=== PATIENT | female | born 1995 | race African-American/Black ===

== ENCOUNTER 2018-04-03 08:40 | Emergency (ER) | payer OTHER ==
[~2018-04-03] VITALS: Ht 167.6 cm; Wt 95.3 kg
[2018-04-03 08:51] VITALS: BP 156/82
--- NOTE | 2018-04-03 09:03 | PHYS DOC ---
Past Medical History Past Medical History: Anemia Past Surgical History: No Surgical History Alcohol Use: None Drug Use: None Adult General Chief Complaint Chief Complaint: MEDICAL CLEARANCE HPI HPI 22-year-old female presents to ER via EMS for complaints initially for sore throat. On initial exam patient reports she really doesn't have a sore throat she came to the ER as she is 15 weeks and feels lightheaded like she could pass out. Patient states she has not eaten this morning as during her she has had decreased appetite. Patient denies any abdominal pain, nausea or vomiting, chest pain or palpitations, urinary symptoms, or vaginal bleeding. Patient states she is 1 para 0 uncertain of last menstrual period. Patient is to 09/19/18 and had an ultrasound at a [facility] in [place] a couple weeks ago. Patient states she has a new WATER TREATMENT TECHNICIAN she is seen on 04/29/18 but did not call the clinic to discuss her symptoms. Patient reports she has history of anemia and takes daily iron. Patient denies vitamins. Patient reports regular bowel movement last night and states she has been urinating without symptoms. Patient reports she was seen at urgent care last week and got a phone call today stating she has BV. Patient denies they called in prescriptions stating she was told to follow-up with her WATER TREATMENT TECHNICIAN for further care. Review of Systems Review of Systems Constitutional: Denies fever or chills. Denies fatigue Eyes: Denies change in visual acuity, redness, or eye pain [] HENT: Denies nasal congestion. Reports she has mild sore throat denies throat swelling or difficulty swallowing Respiratory: Denies cough or shortness of breath [] Cardiovascular: Denies chest pain or palpitations GI: Denies abdominal pain, nausea, vomiting, bloody stools or diarrhea [] : Denies dysuria or hematuria. Denies vaginal bleeding Musculoskeletal: Denies back pain or joint pain [] Integument: Denies rash or skin lesions [] Neurologic: Denies headache, focal weakness or sensory changes. Reports feeling lightheaded Endocrine: Denies polyuria or polydipsia [] All other systems were reviewed and found to be within normal limits, except as documented in this note. Allergies Allergies Allergies Coded Allergies Type Severity Reaction Last Updated Verified No Known Drug Allergies 04/03/18 No Physical Exam Physical Exam Constitutional: Well developed, well nourished, no acute distress, non-toxic appearance. [] HENT: Normocephalic, atraumatic, bilateral ears normal, oropharynx moist-no pharyngeal or tonsillar swelling/erythema, no oral exudates, nose normal. [] Eyes: Pupils equal, conjunctiva normal, no discharge. [] Neck: Normal range of motion, no tenderness, supple Cardiovascular: Heart rate regular rhythm, no murmur [] Lungs & Thorax: Bilateral breath sounds clear to auscultation. Respirations equal and nonlabored Abdomen: Bowel sounds normal, soft-no distention or rigidity, no tenderness Skin: Warm, dry, no erythema, no rash. [] Back: No tenderness, no CVA tenderness. [] Extremities: No tenderness, no cyanosis, no clubbing, ROM intact, no edema. [] Neurologic: Alert and oriented X 3, normal motor function, normal sensory function, no focal deficits noted. [] Psychologic: Affect normal, judgement normal, mood normal. [] Current Patient Data Vital Signs Vital Signs Date Time Temp Pulse Resp B/P (MAP) Pulse Ox O2 Delivery O2 Flow Rate FiO2 04/03/18 08:51 98.4 107 18 156/82 (106) 98 Room Air 98.4 Lab Values Laboratory Tests Test 04/03/18 09:35 04/03/18 09:42 04/03/18 09:45 White Blood Count 8.6 x10^3/uL (4.0-11.0) Red Blood Count 5.35 x10^6/uL (3.50-5.40) Hemoglobin 13.9 g/dL (12.0-15.5) Hematocrit 41.2 % (36.0-47.0) Mean Corpuscular Volume 77 fL (79-100) L Mean Corpuscular Hemoglobin 26 pg (25-35) Mean Corpuscular Hemoglobin Concent 34 g/dL (31-37) Red Cell Distribution Width 25.8 % (11.5-14.5) H Platelet Count 445 x10^3/uL (140-400) H Neutrophils (%) (Auto) 69 % (31-73) Lymphocytes (%) (Auto) 20 % (24-48) L Monocytes (%) (Auto) 9 % (0-9) Eosinophils (%) (Auto) 2 % (0-3) Basophils (%) (Auto) 0 % (0-3) Neutrophils # (Auto) 5.9 x10^3uL (1.8-7.7) Lymphocytes # (Auto) 1.7 x10^3/uL (1.0-4.8) Monocytes # (Auto) 0.8 x10^3/uL (0.0-1.1) Eosinophils # (Auto) 0.1 x10^3/uL (0.0-0.7) Basophils # (Auto) 0.0 x10^3/uL (0.0-0.2) Platelet Estimate Increased (ADEQUATE) Polychromasia Slight Anisocytosis Mod Ovalocytes Occ RBC Morphology Bizarre Forms Occ Sodium Level 138 mmol/L (136-145) Potassium Level 3.2 mmol/L (3.5-5.1) L Chloride Level 102 mmol/L (98-107) Carbon Dioxide Level 25 mmol/L (21-32) Anion Gap 11 (6-14) Blood Urea Nitrogen 5 mg/dL (7-20) L Creatinine 0.7 mg/dL (0.6-1.0) Estimated GFR (Cockcroft-Gault) 126.6 Glucose Level 77 mg/dL (70-99) Calcium Level 9.7 mg/dL (8.5-10.1) Glucose (Fingerstick) 75 mg/dL (70-99) Urine Collection Type Unknown Urine Color Yellow Urine Clarity Clear Urine pH 6.5 Urine Specific [place] 1.015 Urine Protein Negative mg/dL (NEG-TRACE) Urine Glucose (UA) Negative mg/dL (NEG) Urine Ketones (Stick) Negative mg/dL (NEG) Urine Blood Negative (NEG) Urine Nitrite Negative (NEG) Urine Bilirubin Negative (NEG) Urine Urobilinogen Dipstick 0.2 mg/dL (0.2 mg/dL) Urine Leukocyte Esterase Small (NEG) Urine RBC 0 /HPF (0-2) Urine WBC Occ /HPF (0-4) Urine Squamous Epithelial Cells Mod /LPF Urine Bacteria Few /HPF (0-FEW) Urine Mucus Mod /LPF POC Urine HCG, Qualitative Hcg positive (Negative) Laboratory Tests 04/03/18 09:35 Laboratory Tests 04/03/18 09:35 EKG EKG [] Radiology/Procedures Radiology/Procedures [] Course & Med Decision Making Course & Med Decision Making Pertinent Labs and Imaging studies reviewed. (See chart for details) 1105: Bedside heart tone monitor was unavailable in the ER so bedside ultrasound was used- movement and heart rhythm visualized unable to auscultate heart tones. Patient continues to deny any abdominal pain and is in no visible distress at this time. Patient was evaluated in the ER for complaints of feeling lightheaded and mild sore throat. Patient's exam was unremarkable. Discussed patient starting daily vitamins. Potassium was 3.2 on labs. Patient does take daily iron due to previous history of anemia. H& H stable at 13.9/41.2 and UA was unremarkable. Patient during initial exam stated she had decreased appetite in the past few days so in-depth conversation had with patient regarding need for well-balanced meal during . Patient was given jennifer crackers and fluids and she reports her symptoms had subsided. Patient has W[facility] TREATMENT TECHNICIAN appointment scheduled 04/29/18 she was advised she needed to keep this appointment for reevaluation and further care. Patient encouraged to increase fluid intake. Education provided on signs and symptoms to return to ER for. Discharge instructions were discussed. Patient had reported she was seen at urgent care and had been called reporting she had BV patient is to follow up with her WATER TREATMENT TECHNICIAN as she denies any vaginal discharge, odor, or vaginal bleeding so will hold on tx as she is not having sxs currently. Pt's case and plan of care was discussed with Dr. López. Derek Disclaimer Derek Disclaimer This electronic medical record was generated, in whole or in part, using a voice recognition dictation system. Departure Departure Impression: Primary Impression: Light-headed feeling Additional Impression: Sore throat (viral) Disposition: 01 HOME, SELF-CARE Condition: STABLE Referrals: NO PCP (PCP) Patient Instructions: ABCs of , Sore Throat Additional Instructions: You should eat well-balanced meals daily and drink plenty of water. Carry snacks with you daily. Your potassium was 3.2 you should start vitamins daily. Keep your scheduled appointment on 04/29/18 with your [facility] TREATMENT TECHNICIAN doctor. Your hemoglobin and hematocrit was 13.9/41.2- which is in the normal range. You may have viral symptoms causing your sore throat- tylenol as directed on container as needed for pain. Avoid other medications until you discuss with your WATER TREATMENT TECHNICIAN to make sure they are safe with . Problem Qualifiers BERLIN GARZA APRN Apr 03, 2018 09:03
[2018-04-03 09:51] LABS: BASO % 0 % (0-3); EOS # 0.1 x10^3/uL (0.0-0.7); EOS % 2 % (0-3); HEMATOCRIT 41.2 % (36.0-47.0); HEMOGLOBIN 13.9 g/dL (12.0-15.5); LYMPH # 1.7 x10^3/uL (1.0-4.8); LYMPH % 20 % (24-48); MEAN CORPUSCULAR HEMOGLOBIN 26 pg (25-35); MEAN CORPUSCULAR HGB CONC 34 g/dL (31-37); MEAN CORPUSCULAR VOLUME 77 fL (79-100); MONO # 0.8 x10^3/uL (0.0-1.1); MONO % 9 % (0-9); NEUT # 5.9 x10^3uL (1.8-7.7); NEUT % 69 % (31-73); PLATELET COUNT 445 x10^3/uL (140-400); RED BLOOD COUNT 5.35 x10^6/uL (3.50-5.40); RED CELL DISTRIBUTION WIDTH 25.8 % (11.5-14.5); WHITE BLOOD COUNT 8.6 x10^3/uL (4.0-11.0)
[2018-04-03 10:01] LABS: BILIRUBIN,URINE NEGATIVE (NEG); CLARITY,URINE CLEAR; COLOR,URINE YELLOW; NITRITE,URINE NEGATIVE (NEG); PH,URINE 6.5; PROTEIN,URINE NEGATIVE (NEG-TRACE); UROBILINOGEN,URINE 0.2 mg/dL (0.2 mg/dL)
[2018-04-03 10:06] LABS: CALCIUM 9.7 mg/dL (8.5-10.1); CREATININE 0.7 mg/dL (0.6-1.0); GFR 126.6; POTASSIUM 3.2 mmol/L (3.5-5.1)
[2018-04-03 10:28] LABS: BACTERIA,URINE FEW /HPF (0-FEW); RBC,URINE 0 /HPF (0-2); SQUAMOUS EPITHELIAL CELL,UR MOD /LPF; WBC,URINE OCC /HPF (0-4)
[2018-04-03 12:03] LABS: ANISOCYTOSIS MOD; BIZZARE CELLS OCC; OVALOCYTES OCC; PLT ESTIMATE INCREASED (ADEQUATE); POLYCHROMASIA SLIGHT
== END 2018-04-03 11:41 | disposition home or self-care (01) ==
LOC: ER 08:40
DX: O26.892 Other specified pregnancy related conditions, second trimester (principal); J02.8 Acute pharyngitis due to other specified organisms; B97.89 Other viral agents as the cause of diseases classified elsewhere; Z3A.15 15 weeks gestation of pregnancy
CPT/HCPCS: 36415; 80048; 81001; 81025; 82962; 85025; 87086; 99283